=== PATIENT | male | born 1970 | race Caucasian/White ===

== ENCOUNTER 2019-02-27 14:50 | Emergency (ER) | payer MEDICAID ==
[~2019-02-27] VITALS: Ht 167.6 cm; Wt 54.4 kg
[~2019-02-27 14:50] MED LIST: None per pt; OMEP20TA62 PO
[2019-02-27 14:54] VITALS: BP 128/64
[2019-02-27] MEDS ORDERED: LIDOCAINE-MPF 1%, 5ML ONE ×2 (15:26→15:44)
[2019-02-27] MEDS ORDERED: LIDOCAINE-MPF 1%, 5ML INFIL ONE (15:30)
[2019-02-27] MEDS ORDERED: CEFTRIAXONE 1,000 MG IM ONE (15:30)
[2019-02-27] MEDS ORDERED: LIDOCAINE 2%, 20ML SQ ONE (15:30)
[2019-02-27] MEDS ORDERED: CEFTRIAXONE 1,000 MG ONE (15:44)
--- NOTE | 2019-02-27 16:40 | NUR ---
Patient given discharge instructions and Rx, they have confirmed that they understand the instructions. Patient ambulatory with steady gait.
== END 2019-02-27 16:40 | disposition home or self-care (01) ==
LOC: ED 16:34
DX: L03.113 Cellulitis of right upper limb (principal); L02.413 Cutaneous abscess of right upper limb; F15.10 Other stimulant abuse, uncomplicated; F11.20 Opioid dependence, uncomplicated; Z59.0 Homelessness; F17.210 Nicotine dependence, cigarettes, uncomplicated
CPT/HCPCS: 10060; 96372; 99283; J0696; J3490